=== PATIENT | female | born 2000 | race Caucasian/White ===

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

== ENCOUNTER 2019-02-11 14:27 | Emergency (ER) | payer MEDICAID ==
[~2019-02-11] VITALS: Ht 167.6 cm; Wt 62.0 kg
[2019-02-11 14:31] VITALS: BP 119/64
[2019-02-11 15:25] LABS: MEAN CORPUSCULAR HEMOGLOBIN 29.4 pg (27.0-34.8); MEAN CORPUSCULAR HGB CONC 32.2 g/dL (32.4-35.8); MEAN CORPUSCULAR VOLUME 91.1 fL (80-100); MEAN PLATELET VOLUME 7.9 fL (7.4-10.4); PLATELET COUNT 267 x10^3/uL (130-400); RED CELL DISTRIBUTION WIDTH 12.8 % (9.6-15.2)
[2019-02-11 15:33] LABS: ALBUMIN 4.1 g/dL (3.4-5.0); ANION GAP 6 mmol/L (5-15); CHLORIDE 110 mmol/L (98-107); CREATININE 0.99 mg/dL (0.55-1.02)
[2019-02-11 15:36] LABS: CULTURE INDICATED? YES; MICROSCOPIC INDICATED
[2019-02-11 16:20] LABS: BASOPHILS # (AUTO) 0.11 x10^3/uL (0-0.3); BASOPHILS % (AUTO) 1 % (0-1); EOSINOPHILS # (AUTO) 0.28 x10^3/uL (0-0.8); EOSINOPHILS % (AUTO) 2 % (1-7); LYMPHOCYTES # (AUTO) 2.01 x10^3/uL (1-6.1); LYMPHOCYTES % (AUTO) 13 % (22-44); MD SCAN; MONOCYTES % (AUTO) 8 % (2-9); NEUTROPHILS # (AUTO) 12.05 x10^3/uL (1.8-8.0); NEUTROPHILS % (AUTO) 77 % (42-75)
== END 2019-02-11 16:50 | disposition home or self-care (01) ==
LOC: ED 15:02
DX: N30.01 Acute cystitis with hematuria (principal); R11.0 Nausea
CPT/HCPCS: 36415; 74176; 80048; 81001; 82040; 84703; 85025; 87077; 87086; 87186; 99284

== ENCOUNTER → 2019-02-11 | Outpatient (CLI) | payer MEDICAID ==
[~2019-02-11] MED LIST: AMIT25TA PO; DIVA-59 PO
== END | disposition home or self-care (01) ==
LOC: RAD 12:27
DX: R10.9 Unspecified abdominal pain (principal)
CPT/HCPCS: 76770; 76857

== ENCOUNTER 2019-12-04 10:05 | Emergency (ER) | payer MEDICAID ==
[~2019-12-04] VITALS: Ht 167.6 cm; Wt 63.7 kg
[2019-12-04] MEDS ORDERED: MORPHINE SULFATE 4 MG/ML, 1ML ONE (10:52)
[2019-12-04] MEDS ORDERED: ONDANSETRON 2MG/ML, 2ML ONE (10:52)
[2019-12-04 10:57] LABS: BASOPHILS # (AUTO) 0.01 x10^3/uL (0-0.3); BASOPHILS % (AUTO) 0 % (0-1); EOSINOPHILS # (AUTO) 0.58 x10^3/uL (0-0.8); EOSINOPHILS % (AUTO) 7 % (1-7); LYMPHOCYTES # (AUTO) 0.86 x10^3/uL (1-6.1); LYMPHOCYTES % (AUTO) 11 % (22-44); MD NO; MEAN CORPUSCULAR HEMOGLOBIN 29.7 pg (27.0-34.8); MEAN CORPUSCULAR HGB CONC 33.1 g/dL (32.4-35.8); MEAN CORPUSCULAR VOLUME 89.8 fL (80-100); MEAN PLATELET VOLUME 7.9 fL (7.4-10.4); MONOCYTES # (AUTO) 0.67 x10^3/uL (0-1.4); MONOCYTES % (AUTO) 8 % (2-9); NEUTROPHILS # (AUTO) 6.07 x10^3/uL (1.8-8.0); NEUTROPHILS % (AUTO) 74 % (42-75); PLATELET COUNT 223 x10^3/uL (130-400); RED BLOOD COUNT 4.46 x10^6/uL (3.82-5.3); RED CELL DISTRIBUTION WIDTH 13.3 % (9.6-15.2)
[2019-12-04] MEDS ORDERED: SODIUM CHLORIDE 0.9% 1,000ML IVBOLUS ONE (11:00)
[2019-12-04] MEDS ORDERED: MORPHINE SULFATE 4 MG/ML, 1ML IVPush PRN (11:00)
[2019-12-04] MEDS ORDERED: SODIUM CHLORIDE FLUSH 10ML SYR IVF ONE (11:00)
[2019-12-04] MEDS ORDERED: ONDANSETRON 2MG/ML, 2ML IVPush ONE (11:00)
[2019-12-04 11:01] LABS: ALBUMIN 3.5 g/dL (3.4-5.0); ANION GAP 7 mmol/L (5-15); CHLORIDE 109 mmol/L (98-107); CREATININE 0.77 mg/dL (0.55-1.02)
--- NOTE | 2019-12-04 11:13 | NUR ---
REPORT FROM RAFAT BROOKS. PT MEDICATD, IVF INFUSING. VSS. AWAITING LABS/CT.
[2019-12-04 11:19] LABS: MICROSCOPIC NOT IND
[2019-12-04 11:24] LABS: CULTURE INDICATED? NO
--- NOTE | 2019-12-04 11:25 | NUR ---
pt to ct. stable. as
[2019-12-04] MEDS ORDERED: OMNIPAQUE 350 MG/ML, 100ML BOTTLE ONE (11:37)
--- NOTE | 2019-12-04 11:57 | NUR ---
BACK FROM CT. NAUSEA IMPROVED BUT STILL THERE. PAIN IS 5/10.
--- NOTE | 2019-12-04 12:13 | NUR ---
PLAN FOR US.
[2019-12-04] MEDS ORDERED: ONDANSETRON ODT 8 MG ONE (12:38)
[2019-12-04 13:18] VITALS: BP 118/85
[2019-12-04] MEDS ORDERED: KETOROLAC 30 MG/1 ML IVPush ONE (13:30)
[2019-12-04] MEDS ORDERED: KETOROLAC 30 MG/1 ML ONE (13:32)
--- NOTE | 2019-12-04 13:38 | NUR ---
TORJANN PER MAR PLAN FOR DC AWAITING PAPERS.
--- NOTE | 2019-12-04 14:07 | NUR ---
CALLED PT TO [facility] PAPERWORK AT CHARGE DESK. PT VERBALIZED UNDERSTANDING.
== END 2019-12-04 13:52 | disposition home or self-care (01) ==
LOC: ED 13:13
DX: N83.11 Corpus luteum cyst of right ovary (principal)
CPT/HCPCS: 36415; 74177; 76830; 80048; 81003; 82040; 84703; 85025; 96374; 96375; 99285; J1885; J2270; J2405; J7030; Q9967; 96361

== ENCOUNTER 2019-12-04 22:05 | Emergency (ER) | payer MEDICAID ==
[~2019-12-04] VITALS: Ht 167.6 cm; Wt 63.2 kg
[2019-12-04] MEDS ORDERED: HYDROmorphone 1 MG/ML, 1ML INJ ONE (22:55)
[2019-12-04] MEDS ORDERED: ONDANSETRON ODT 4 MG ONE (22:55)
[2019-12-04] MEDS ORDERED: HYDROmorphone 2 MG/ML, 1ML IM PRN (23:00)
[2019-12-04] MEDS ORDERED: ONDANSETRON ODT 4 MG PO ONE (23:00)
--- NOTE | 2019-12-04 23:17 | NUR ---
Patient comes into the emergency department for the second time today, patient reports having abdominal pain earlier, being diagnosed with a ruptured ovarian cyst and discharged. Patient reports main concern is pain control. RN returned administered medication per provider order. Patient attached to pulsatile oxygen sensor and blood pressure cuff. Vital signs are stable (see vital signs flowsheet)
[2019-12-05 00:01] VITALS: BP 108/57
== END 2019-12-05 00:22 | disposition home or self-care (01) ==
LOC: ED 23:05
DX: N83.291 Other ovarian cyst, right side (principal)
CPT/HCPCS: 96372; 99283; J1170; Q0162

== ENCOUNTER → 2020-07-12 | Outpatient (CLI) | payer MEDICAID ==
[~2020-07-12] MED LIST changes: +OMNIPAQUE 350 MG/ML, 100ML BOTTLE ONE
== END | disposition home or self-care (01) ==
LOC: CFH 08:44
PROVIDERS: ATTEND Specialist
DX: J18.9 Pneumonia, unspecified organism (principal); R16.0 Hepatomegaly, not elsewhere classified; D72.10 Eosinophilia, unspecified
CPT/HCPCS: 71260; 74160; Q9967

== ENCOUNTER → 2020-07-17 | Outpatient (CLI) | payer MEDICAID ==
[~2020-07-17] MED LIST changes: -OMNIPAQUE 350 MG/ML, 100ML BOTTLE ONE
== END | disposition home or self-care (01) ==
LOC: CVU 06:51
PROVIDERS: ATTEND Specialist
DX: D72.10 Eosinophilia, unspecified (principal)
CPT/HCPCS: 93306; 94060; 94726; 94729